=== PATIENT | female | born 1950 | race Caucasian/White ===

== ENCOUNTER 2017-10-31 13:22 | Emergency (ER) | payer MEDICARE, MEDICAID ==
[2017-10-31 13:58] LABS: #Basophils 0.1 thou/uL (0.0-0.2); #Eosinphils 0.3 thou/uL (0.0-0.7); #Lymphocytes 2.3 thou/uL (1.20-3.40); #Monocytes 0.9 thou/uL (0.11-0.59); #Neutrophils 7.7 thou/uL (1.40-6.50); %Basophils 0.6 % (0.0-1.0); %Eosinophils 2.3 % (0.0-10.0); %Lymphocytes 20.1 % (21.0-51.0); %Monocytes 8.4 % (0.0-10.0); %Neutrophils 68.6 % (42.0-75.0); Hemoglobin 14.4 g/dL (12.0-16.0); Mean Corpuscular HGB CONC 33.7 g/dL (32.0-36.0); Mean Corpuscular Hemoglobin 33.2 pg (27.0-31.0); Mean Corpuscular Volume 98.5 fl (81.0-99.0); Mean Platelet Volume 8.9 fL (7.4-10.4); Platelet Count 216 thou/uL (130-400); RBC Distribution Width 12.7 % (11.5-14.5); Red Blood Cell (RBC) Count 4.33 mill/uL (4.20-5.40); White Blood Cell (WBC) Count 11.2 thou/uL (4.8-10.8)
[2017-10-31 14:01] LABS: Bilirubin Negative (Negative); Blood, Urine Trace (Negative); Clarity CLEAR (Clear); Glucose, Urine (Dipstick) Negative (Negative); Leukocyte Negative (Negative); Nitrite Negative (Negative); Protein, Urine (Dipstick) Negative (Neg-Trace); Urobilinogen 0.2 mg/dL (0.2-1.0)
[2017-10-31 14:04] LABS: Bacteria/HPF None Seen HPF (None Seen); Hyaline Casts/LPF 0-3 HYALINE CAST LPF (0-3 Hyaline); Pathc Cast-AUWi Flag 0.27 (0-2.49); Squamous Epithelial 0-3 HPF (0-3); WBC/HPF 0-3 HPF (0-3)
[2017-10-31 14:19] LABS: ALT (SGPT) 14 U/L (8-55); AST (SGOT) 20 U/L (5-34); Albumin 4.1 g/dL (3.4-4.8); Alkaline Phosphatase 102 U/L (40-150); Anion Gap 12 mmol/L (10-20); BUN (Urea Nitrogen) 12 mg/dL (9.8-20.1); Bilirubin, Total 0.7 mg/dL (0.2-1.2); Calc. Creatinine Clearance 0 mL/min (70-130); Calcium 9.5 mg/dL (7.8-10.44); Carbon Dioxide 26 mmol/L (23-31); Chloride 104 mmol/L (98-107); Estimated GFR-MDRD 61; Globulin 3.9 g/dL (2.4-3.5); Glucose 100 mg/dL (80-115); Sodium 138 mmol/L (136-145)
[2017-10-31 15:53] LABS: Magnesium 1.9 mg/dL (1.6-2.6)
--- NOTE | 2017-10-31 16:52 | CT ---
NONCONTRAST CT ABDOMEN AND PELVIS 10/31/17 HISTORY: Right flank pain. History of frequent urinary tract infections and pyelonephritis. COMPARISON: 07/19/16. FINDINGS: Minimal chronic bibasilar lung changes are present. Vascular calcifications in the abdominal aorta and iliac arteries. Postcholecystectomy changes are again seen. The liver, spleen, pancreas, bilateral adrenal glands, kidneys and urinary bladder as well as uterus and adnexal structures demonstrate a grossly normal nonenhanced CT appearance for the patient's age. No renal or ureteral calculi are seen bilaterally. There is no hydronephrosis. No perinephric fluid c ollection is identified. There is suggestion of submucosal fat within the proximal ascending colon which may be related to osmel or inflammatory or infectious process. Similar finding was present on the prior exam although less pr ominent on today's study. Degenerative changes are again noted in the spine. IMPRESSION: No acute findings are seen on this nonenhanced CT scan examination of the abdomen and pelvis. No lucero l or ureteral calculi are visualized. CT abdomen and pelvis is overall stable from prior exam aside f rom resolution of the left pleural effusion. POS: [facility]
== END 2017-10-31 17:15 | disposition home or self-care (01) ==
LOC: ERS 13:22
DX: R10.9 Unspecified abdominal pain (principal); M27.2 Inflammatory conditions of jaws; K02.9 Dental caries, unspecified; K03.81 Cracked tooth; I48.91 Unspecified atrial fibrillation; K21.9 Gastro-esophageal reflux disease without esophagitis; E78.5 Hyperlipidemia, unspecified; I10 Essential (primary) hypertension; F17.220 Nicotine dependence, chewing tobacco, uncomplicated; Z71.6 Tobacco abuse counseling; Z79.01 Long term (current) use of anticoagulants; Z79.899 Other long term (current) drug therapy
CPT/HCPCS: 36415; 74176; 80053; 81003; 81015; 83690; 83735; 85025; 99406

== ENCOUNTER 2017-11-10 11:43 | Outpatient (CLI) | payer MEDICARE, MEDICAID ==
--- NOTE | 2017-11-10 14:11 | RAD ---
TWO VIEWS OF THE LEFT HIP: INDICATIONS: Fall with left hip pain. FINDINGS: No acute fracture or subluxation is evident. The examination does not appear appreciably changed fro m the comparison dated 02/04/2012. IMPRESSION: No acute osseous abnormality. POS: [facility]
== END 2017-11-10 11:44 | disposition home or self-care (01) ==
LOC: SCSRAD 11:43
PROVIDERS: ATTEND Psychiatry & Neurology Neurology
DX: M51.27 Other intervertebral disc displacement, lumbosacral region (principal)

== ENCOUNTER 2018-03-11 14:13 | Emergency (ER) | payer MEDICARE, OTHER ==
[2018-03-11 14:39] LABS: Bilirubin Negative (Negative); Blood, Urine Large (Negative); Glucose, Urine (Dipstick) Negative (Negative); Leukocyte Large (Negative); Nitrite Negative (Negative); Protein, Urine (Dipstick) 100 mg/dL (Neg-Trace); Specific Gravity, Urine 1.007 (1.002-1.036); pH, Urine 6.5 (5.0-9.0)
[2018-03-11 14:45] LABS: Hyaline Casts/LPF 0-3 HYALINE CAST LPF (0-3 Hyaline); Pathc Cast-AUWi Flag 0.58 (0-2.49); Squamous Epithelial 0-3 HPF (0-3)
[2018-03-11 14:46] LABS: Yeast-AUWi Flag 65.1 (0-25.0)
[2018-03-11 14:54] LABS: Clarity CLOUDY (Clear)
[2018-03-11 14:55] LABS: Bacteria/HPF 1+ HPF (None Seen); RBC/HPF GREATER THAN 50-TNTC HPF (0-3); Yeast-All Forms None Seen HPF (None Seen)
== END 2018-03-11 15:37 | disposition home or self-care (01) ==
LOC: ERS 14:13
DX: N39.0 Urinary tract infection, site not specified (principal); I48.91 Unspecified atrial fibrillation; K21.9 Gastro-esophageal reflux disease without esophagitis; E78.5 Hyperlipidemia, unspecified; I10 Essential (primary) hypertension; F17.220 Nicotine dependence, chewing tobacco, uncomplicated; Z79.899 Other long term (current) drug therapy
CPT/HCPCS: 81003; 81015; 99283

== ENCOUNTER 2018-08-23 11:46 | Outpatient (CLI) | payer MEDICARE, MEDICAID ==
[2018-08-23 12:52] LABS: #Basophils 0.1 thou/uL (0.0-0.2); #Eosinphils 0.1 thou/uL (0.0-0.7); #Lymphocytes 1.6 thou/uL (1.20-3.40); #Monocytes 0.6 thou/uL (0.11-0.59); #Neutrophils 5.7 thou/uL (1.40-6.50); %Eosinophils 1.8 % (0.0-10.0); %Lymphocytes 19.4 % (21.0-51.0); %Monocytes 7.9 % (0.0-10.0); %Neutrophils 69.9 % (42.0-75.0); Hemoglobin 14.3 g/dL (12.0-16.0); Mean Corpuscular Hemoglobin 33.5 pg (27.0-31.0); Mean Corpuscular Volume 98.5 fL (78.0-98.0); Mean Platelet Volume 9.8 fL (7.4-10.4); Platelet Count 212 thou/uL (130-400); RBC Distribution Width 11.6 % (11.5-14.5); Red Blood Cell (RBC) Count 4.28 mill/uL (4.20-5.40); White Blood Cell (WBC) Count 8.2 thou/uL (4.8-10.8)
[2018-08-23 12:55] LABS: INR-International Normal Ratio 1.2; Prothrombin Time 15.5 SEC (12.0-14.7)
[2018-08-23 13:29] LABS: ALT (SGPT) 10 U/L (8-55); AST (SGOT) 22 U/L (5-34); Albumin 3.7 g/dL (3.4-4.8); Alkaline Phosphatase 81 U/L (40-150); Anion Gap 14 mmol/L (10-20); BUN (Urea Nitrogen) 13 mg/dL (9.8-20.1); Bilirubin, Total 0.5 mg/dL (0.2-1.2); Calc. Creatinine Clearance 0 mL/min (70-130); Calcium 9.3 mg/dL (7.8-10.44); Carbon Dioxide 27 mmol/L (23-31); Chloride 103 mmol/L (98-107); Estimated GFR-MDRD 64; Globulin 3.8 g/dL (2.4-3.5); Glucose 92 mg/dL (80-115); Potassium 4.9 mmol/L (3.5-5.1); Protein, Total 7.5 g/dL (6.0-8.3); Sodium 139 mmol/L (136-145)
--- NOTE | 2018-08-25 21:45 | EKG ---
Test Reason : Blood Pressure : / mmHG Vent. Rate : 072 BPM Atrial Rate : 098 BPM P-R Int : 000 ms QRS Dur : 080 ms QT Int : 366 ms P-R-T Axes : 000 016 039 degrees QTc Int : 400 ms Atrial fibrillation Abnormal ECG When compared with ECG of 19-JAN-2017 12:34, T wave amplitude has decreased in Anterior leads Confirmed by Michael ROMO ([id number]) on 08/25/2018 9:45:30 PM Referred By: OTILIO Confirmed By:Michael ROMO
== END 2018-08-23 11:47 | disposition home or self-care (01) ==
LOC: LABBT 11:46
PROVIDERS: ATTEND Internal Medicine Cardiovascular Disease
DX: Z01.818 Encounter for other preprocedural examination (principal); I34.0 Nonrheumatic mitral (valve) insufficiency
CPT/HCPCS: 80053; 85025; 85610; 85730; 93005; 93010

== ENCOUNTER 2018-08-26 06:25 | Day surgery (SDC) | payer MEDICARE, MEDICAID ==
[2018-08-23 12:25] VITALS: BMI 23.3
[2018-08-26] MEDS ORDERED: PROPOFOL 20 ML ONE (07:47)
[2018-08-26] MEDS ORDERED: PROPOFOL 200 MG/20 ML VIAL ONE (11:35)
--- NOTE | 2018-08-26 21:53 | ECHO ---
67-year-old woman with mitral regurgitation. DESCRIPTION OF PROCEDURE: The patient was taken to the PACU. The patient was sedated by anesthesiology. A transesophageal pro be was placed into the distal esophagus and stomach. Echocardiographic images were obtained. The tr ansesophageal probe was removed. FINDINGS: 1. Normal left ventricular systolic function. 2. Marked left atrial enlargement. 3. Left ventricle is not dilated. 4. The aortic valve leaflets are thickened with adequate leaflet excursion. 5. Mild aortic regurgitation. 6. The mitral valve leaflets are not coapting. 7. Severe mitral regurgitation. 8. A small mass is noted attached to the septal wall suggestive of vegetation. 9. Atherosclerotic debris in the descending aorta. IMPRESSION: Noncoapting mitral valve with severe mitral regurgitation and a mass in the left ventricular attached to the septum suggestive of vegetation.
== END 2018-08-26 10:15 | disposition home or self-care (01) ==
LOC: CCL 06:25
PROVIDERS: ATTEND Internal Medicine Cardiovascular Disease
PROC: B246ZZ4 Ultrasonography of Right and Left Heart, Transesophageal (ICD-10-PCS; principal; 2018-08-26)
DX: I34.0 Nonrheumatic mitral (valve) insufficiency (principal); I35.1 Nonrheumatic aortic (valve) insufficiency; I70.0 Atherosclerosis of aorta; I48.91 Unspecified atrial fibrillation; I27.20 Pulmonary hypertension, unspecified; I10 Essential (primary) hypertension; E78.5 Hyperlipidemia, unspecified; Z90.49 Acquired absence of other specified parts of digestive tract; Z88.1 Allergy status to other antibiotic agents; Z88.2 Allergy status to sulfonamides; Z88.5 Allergy status to narcotic agent; Z79.01 Long term (current) use of anticoagulants; Z79.899 Other long term (current) drug therapy; Z98.890 Other specified postprocedural states
CPT/HCPCS: 93312; J2704

== ENCOUNTER 2021-10-09 17:05 | Emergency (ER) | payer MEDICARE, MEDICAID | END 2021-10-09 22:02 | disposition left against medical advice (07) | LOC: ERS 17:05 | DX: Z53.21 Procedure and treatment not carried out due to patient leaving prior to being seen by health care provider (principal) ==

== ENCOUNTER 2021-12-20 18:36 | Emergency (ER) | payer OTHER, MEDICARE, MEDICAID | END 2021-12-20 20:28 | disposition home or self-care (01) | LOC: ERS 18:36 | DX: S62.202A Unspecified fracture of first metacarpal bone, left hand, initial encounter for closed fracture (principal); S29.011A Strain of muscle and tendon of front wall of thorax, initial encounter; I11.0 Hypertensive heart disease with heart failure; I50.9 Heart failure, unspecified; E78.5 Hyperlipidemia, unspecified; E78.00 Pure hypercholesterolemia, unspecified; F17.220 Nicotine dependence, chewing tobacco, uncomplicated; Z79.01 Long term (current) use of anticoagulants; Z79.899 Other long term (current) drug therapy; V89.2XXA Person injured in unspecified motor-vehicle accident, traffic, initial encounter | CPT/HCPCS: 99283 ==

== ENCOUNTER 2024-10-30 11:29 | Emergency (ER) | payer OTHER ==
[2024-10-30 13:04] LABS: Bacteria/HPF None Seen HPF (None Seen); Bilirubin Negative (Negative); Blood, Urine 3+ (Negative); CAUTI Indications for Culture Fever or rigors; Glucose, Urine (Dipstick) 30 mg/dL (Negative); Ketone, Urine Negative (Negative); Leukocyte Negative Leu/uL (Negative); Nitrite Negative (Negative); Protein, Urine (Dipstick) 300 mg/dL (Neg-Trace); RBC/HPF Greater than 50 HPF (0-3); Squamous Epithelial None Seen HPF (0-3); Urobilinogen Normal mg/dL (Less than 2); WBC/HPF Greater than 50 HPF (0-3); pH, Urine 6.5 (5.0-9.0)
[2024-10-30 13:07] LABS: Clarity Bloody (Clear)
[2024-10-30 13:08] LABS: Urine Culture Reflex Yes Yes
[2024-10-30] MEDS ORDERED: Ciprofloxacin 500 MG TAB ONE (13:19)
[2024-10-30 13:20] LABS: #Basophils 0.09 10x3/uL (0.0-0.2); %Basophils 0.7 % (0.0-1.0); %Eosinophils 0.7 % (0.0-10.0); %Lymphocytes 12.2 % (21.0-51.0); %Monocytes 6.6 % (0.0-10.0); %Neutrophils 79.4 % (42.0-75.0); Hematocrit 41.1 % (36.0-47.0); Hemoglobin 13.7 g/dL (12.0-16.0); Mean Corpuscular HGB CONC 33.3 g/dL (32.0-36.0); Mean Corpuscular Hemoglobin 32.1 pg (27.0-31.0); Mean Corpuscular Volume 96.3 fL (78.0-98.0); Platelet Count 232 10x3/uL (130-400); RBC Distribution Width 12.6 % (11.5-14.5); Red Blood Cell (RBC) Count 4.27 mill/uL (4.20-5.40)
[2024-10-30 13:44] LABS: ALT (SGPT) 7 U/L (Less than 34); AST (SGOT) 24 U/L (11-34); Albumin 3.5 g/dL (3.1-4.5); Alkaline Phosphatase 80 U/L (40-110); Anion Gap 15 mmol/L (10-20); BUN (Urea Nitrogen) 13 mg/dL (9.8-20.1); Bilirubin, Total 0.6 mg/dL (0.3-1.2); Calc. Creatinine Clearance 0 mL/min (70-130); Calcium 9.1 mg/dL (7.8-10.44); Carbon Dioxide 22 mmol/L (23-31); Chloride 104 mmol/L (98-107); Estimated GFR 76; Globulin 4.9 g/dL (2.4-3.5); Glucose 92 mg/dL (83-110); Potassium 4.9 mmol/L (3.5-5.1); Protein, Total 8.4 g/dL (5.8-8.1); Sodium 136 mmol/L (136-145)
== END 2024-10-30 13:22 | disposition home or self-care (01) ==
LOC: ERS 11:29
DX: N30.01 Acute cystitis with hematuria (principal); I11.0 Hypertensive heart disease with heart failure; I50.9 Heart failure, unspecified; E78.5 Hyperlipidemia, unspecified; F17.220 Nicotine dependence, chewing tobacco, uncomplicated; Z79.01 Long term (current) use of anticoagulants; Z79.899 Other long term (current) drug therapy
CPT/HCPCS: 36415; 80053; 81001; 85025; 87086; 99284